=== PATIENT | male | born 1985 ===

== ENCOUNTER → 2018-06-15 01:55 | Outpatient (REF) | payer OTHER, SELFPAY ==
[2018-06-20 20:40] LABS: Mitogen-NIL 8.34 IU/mL; NIL 0.02 IU/mL; QuantiFERON TB NEGATIVE (Negative); TB1-NIL < 0.01 IU/mL; TB2-NIL < 0.01 IU/mL
== END ==
LOC: LAB 01:55
PROVIDERS: Visit Provider Family Medicine
DX: Z11.1 Encounter for screening for respiratory tuberculosis (principal); Z11.3 Encounter for screening for infections with a predominantly sexual mode of transmission
CPT/HCPCS: 36415; 86480; 86780; 87591